=== PATIENT | female | born 1960 | race Caucasian/White ===

== ENCOUNTER 2017-03-14 13:43 | Emergency (ER) | payer SELFPAY ==
[~2017-03-14] VITALS: Ht 160 cm; Wt 78.0 kg
[2017-03-14 13:49] VITALS: Ht 160 cm; Wt 78.0 kg
--- NOTE | 2017-03-14 17:00 | ERA ---
ER Documentation Chief Complaint Date/Time DATE: 03/14/17 TIME: 17:00 Chief Complaint dizziness, nausea sice tuesday HPI The patient is a 56-year-old female, presenting with intermittent dizziness, also with nausea for 3 days. She has similar symptoms previously, denies fever , chills, neck pain, chest pain, dyspnea, abdominal pain, dyspnea, diarrhea. She does not smoke or drink Past medical history: Vertigo, hypertension, dyslipidemia Past medical history: Left shoulder, right forearm ROS All systems reviewed and are negative except as per history of present illness. Medications Home Meds Active Scripts Ondansetron (Ondansetron Odt) 4 Mg Tab.rapdis, 4 MG PO Q6H Y for NAUSEA AND/OR VOMITING, #10 TAB Prov:GIANNA ENGLAND MD 03/14/17 Meclizine Hcl* (Antivert*) 12.5 Mg Tab, 25 MG PO Q6H Y for DIZZINESS, #20 TAB Prov:GIANNA ENGLAND MD 03/14/17 Allergies Allergies: Uncoded Allergies: NONE (Allergy, Unknown, 10/14/14) PMhx/Soc History of Surgery: Yes (rt wrist injury, stress incontinence sx) Anesthesia Reaction: No Hx Neurological Disorder: No Hx Respiratory Disorders: No Hx Cardiac Disorders: No Hx Psychiatric Problems: No Hx Alcohol Use: No Hx Substance Use: No Hx Tobacco Use: No Physical Exam Vitals Vital Signs Date Time Temp Pulse Resp B/P Pulse Ox O2 Delivery O2 Flow Rate FiO2 03/14/17 18:40 70 16 136/78 98 Room Air 03/14/17 13:49 98.1 77 18 135/77 99 Physical Exam Const: No acute distress. Head: Atraumatic. Eyes: Normal Conjunctiva. ENT: Normal External Ears, Nose and Mouth. Neck: Full range of motion. No meningismus. Resp: Clear to auscultation bilaterally. Cardio: Regular rate and rhythm. Abd: Soft, non distended, normal bowel sounds, non tender. Skin: No petechiae or rashes. Back: No midline or flank tenderness. Ext: No cyanosis, or edema. Neur: Awake and alert. No focal deficit Psych: Normal Mood and Affect. Results 24 hrs Current Medications Medications (Trade) Dose Ordered Sig/Michael Route PRN Reason Start Time Stop Time Status Last Admin Dose Admin Ondansetron HCl (Zofran Odt) 4 mg ONCE STAT ODT 03/14/17 17:09 03/14/17 17:12 DC 03/14/17 17:24 Meclizine HCl (Antivert) 25 mg ONCE ONCE PO 03/14/17 17:30 03/14/17 17:31 DC 03/14/17 17:24 Procedures/[place] [id number] Radiology Main Line: [phone] DIAGNOSTIC IMAGING REPORT Patient: DELL DAVIS : 1960 Age: 56 Sex: F MR #: [id number] DOS: 03/14/17 1709 Ordering MD: GIANNA ENGLAND MD Location: E/R Room/Bed: PROCEDURE: CT Brain without contrast. CLINICAL INDICATION: Dizziness TECHNIQUE: A CT of the brain was performed on a [employer] 64-slice CT scanner utilizing axial imaging from the skull base through the vertex without IV contrast. Multiplanar reformatted images were made. Images were reviewed on a PACS workstation. The CTDIvol is 43.27 mGy and the DLP is 720.23 mGycm. One of the following 3 does reduction techniques were used during this CT examination: 1) Automated exposure control 2) Adjustment of the mA +/- kV according to patient size or 3) Use of iterative reconstruction technique COMPARISON: None FINDINGS: There is no intracranial hemorrhage, mass effect, or midline shift. No extra- axial fluid collection is seen. The ventricles and sulci are age appropriate. Mild diffuse volume loss is present. The presence of a left middle cranial fossa arachnoid cyst is noted which measures approximately 3 cm transverse by 9.6 mm AP . The density of the brain is normal, and the carranza white matter differentiation appears well-preserved. Partially empty sella is present. The visualized scalp and calvarium are normal. The bilateral orbits are normal. The bilateral paranasal sinuses are remarkable for mild chronic bilateral ethmoid sinus disease. The bilateral mastoid air cells and middle ear cavities are clear. IMPRESSION: 1. No evidence of acute intracranial hemorrhage, infarcts, or acute intracranial pathology. 2. Left middle cranial fossa arachnoid cyst 9.6 mm AP by 3 cm transverse dimensions. 3. Partially empty sella 4. Mild chronic bilateral ethmoid sinus disease RPTAT: HDC .Clari Aranda MD, Date Time Electronically viewed and signed by .Clari Aranda MD, MD on 03/14/2017 18: 15 .C/ CC: GIANNA ENGLAND MD EKG: Read by emergency physician Rate/Rhythm: Normal Sinus Rhythm 70 beats/min QRS, ST, T-waves: No ST elevation, no T inversion Impression: Leelee EKG MEDICAL MAKING DECISION: The patient is a 56-year-old female, presenting with acute vertigo of unclear etiology. She was treated with Zofran ODT and Antivert p.o. with good response. She is stable for outpatient follow-up X The differential diagnoses considered include but are not limited to central causes such as cerebellar infarct, cerebellar hemorrhage, cerebellar tumor, acoustic neuroma, peripheral causes such as benign positional vertigo, labyrinthitis, medication, Meniere's disease. Departure Diagnosis: Primary Impression: Vertigo Condition: Good Comments She was discharged with Antivert and Zofran I discussed the findings with the patient. I advised the patient to follow-up with the primary physician in about 1-2 days, sooner if needed and return if any concern. GIANNA ENGLAND MD Mar 14, 2017 17:00
[2017-03-14] MEDS ORDERED: ONDANSETRON (ODT) 4 MG TAB ODT STA (17:09)
[2017-03-14] MEDS ORDERED: MECLIZINE 12.5 MG TAB PO ONE (17:30)
--- NOTE | 2017-03-14 18:16 | RADRPT ---
PROCEDURE: CT Brain without contrast. CLINICAL INDICATION: Dizziness TECHNIQUE: A CT of the brain was performed on a [employer] 64-slice CT scanner utilizing axial imaging from the skull base through the vertex without IV contrast. Multiplanar reformatted images were made. Images were reviewed on a PACS workstation. The CTDIvol is 43.27 mGy and the DLP is 72 0.23 mGycm. One of the following 3 does reduction techniques were used during this CT examination: 1) Automated exposure control 2) Adjustment of the mA +/- kV according to patient size or 3) Use of iterative reconstruction technique COMPARISON: None FINDINGS: There is no intracranial hemorrhage, mass effect, or midline shift. No extra-axial fluid collection is seen. The ventricles and sulci are age appropriate. Mild diffuse volume loss is present. The pre sence of a left middle cranial fossa arachnoid cyst is noted which measures approximately 3 cm trans verse by 9.6 mm AP . The density of the brain is normal, and the carranza white matter differentiation appears well-preserved. Partially empty sella is present. The visualized scalp and calvarium are normal. The bilateral orbits are normal. The bilateral parana roland sinuses are remarkable for mild chronic bilateral ethmoid sinus disease. The bilateral mastoid a ir cells and middle ear cavities are clear. IMPRESSION: 1. No evidence of acute intracranial hemorrhage, infarcts, or acute intracranial pathology. 2. Left middle cranial fossa arachnoid cyst 9.6 mm AP by 3 cm transverse dimensions. 3. Partially empty sella 4. Mild chronic bilateral ethmoid sinus disease RPTAT: HDC .Clari Aranda MD, Date Time Electronically viewed and signed by .Clari Aranda MD, MD on 03/14/2017 18:15 .C/
[2017-03-14] MEDS ORDERED: ONDA4TAB14 PO (18:36)
[2017-03-14] MEDS ORDERED: MECL12.574 PO (18:36)
[2017-03-14 18:40] VITALS: BP 136/78; PULSE 70; RESP 16
== END 2017-03-14 19:12 | disposition home or self-care (01) ==
LOC: E/R 13:43
DX: R42 Dizziness and giddiness (principal); R11.2 Nausea with vomiting, unspecified; I10 Essential (primary) hypertension
CPT/HCPCS: 70450; 93005